=== PATIENT | female | born 1965 | race Caucasian/White ===

== ENCOUNTER 2017-01-06 15:41 | Emergency (ER) | payer BC, OTHER ==
--- NOTE | 2017-01-06 16:38 | EDM.PDOC ---
ED HPI GENERAL MEDICAL PROBLEM - General Chief Complaint: Flank Pain Stated Complaint: KIDNEY PAINS Time Seen by Provider: 01/06/17 16:36 Source of Information: Reports: Patient History Limitations: Reports: No Limitations - History of Present Illness INITIAL COMMENTS - FREE TEXT/NARRATIVE: HISTORY AND PHYSICAL: [] 51-year-old female presenting with bilateral flank pain similar to incident 10 years ago. At that time she was diagnosed with bilateral kidney stones and infection History of Present Illness: [Pain started today she has been voiding in very small amounts Patient does have history of a tubal ligation] Review of Systems: As per history of present illness and below otherwise all systems reviewed and negative. Past medical history: As per history of present illness and as reviewed below otherwise noncontributory. Surgical history: As per history of present illness and as reviewed below otherwise noncontributory. Social history: No reported history of drug or alcohol abuse. Family history: As per history of present illness and as reviewed below otherwise noncontributory. Physical exam: Alert and oriented female somewhat teary-eyed when speaking of her illness HEENT: Atraumatic, normocehpalic, pupils reactive, negative for conjunctival pallor or scleral icterus, mucous membranes moist, throat clear, neck supple, nontender, trachea midline. Lungs: Clear to auscultation, breath sounds equal bilaterally, chest non tender. Heart: S1S2, regular, negative for clicks, rubs, or JVD. Abdomen: Soft, nondistended, nontender. Negative for masses or hepatossplenmegaly. Positive for costovertebral tenderness. Pelvis: Stable nontender. Genitourinary: Deferred. Rectal: Deferred Extremities: Atraumatic, negative for cords or calf pain. Neurovascular unremarkable. Neuro: Awake, alert, oriented. Cranial nerves II through XII unremarkable. Cerebellum unremarkable. Motor and sensory unremarkable throughout. Exam nonfocal. Diagnostics: [Abdomen pelvis CT without] Therapeutics: [] Impression: [early pyleonephritis] Plan: [cipro 500 mg bid for 7 days Followup with primary care provider next week] Definitive disposition and diagnosis as appropriate pending reevaluation and review of above. Onset: Today, Sudden Duration: Hour(s):, Getting Worse Location: Reports: Other (flanks) Bilateral Flank Pain Score (Numeric/FACES): 9 - Related Data Allergies Allergy/AdvReac Type Severity Reaction Status Date / Time No Known Allergies Allergy Verified 09/19/14 14:33 Home Meds: Home Meds Ciprofloxacin HCl [Cipro] 500 mg PO BID #14 tablet 01/06/17 [Rx] Olmesartan [Benicar] 20 mg PO DAILY 01/06/17 [History] ED ROS GENERAL - Review of Systems Review Of Systems: ROS reveals no pertinent complaints other than HPI. ED EXAM, RENAL/ - Physical Exam Exam: See Below (see dictation) Course - Vital Signs Last Recorded V/S: Last Vital Signs Temp 36.6 C 01/06/17 16:30 Pulse 60 01/06/17 19:05 Resp 18 01/06/17 19:05 BP 177/98 H 01/06/17 19:05 Pulse Ox 98 01/06/17 19:05 - Orders/Labs/Meds Orders: Active Orders 24 hr Category Date Time Status Abdomen Pelvis wo Cont [CT] Stat Exams 01/06/17 17:46 Taken CBC WITH AUTO DIFF [HEME] Stat Lab 01/06/17 17:28 Ordered COMPREHENSIVE METABOLIC PN,CMP [CHEM] Stat Lab 01/06/17 17:28 Ordered CULTURE URINE [RM] Stat Lab 01/06/17 17:35 Received Sodium Chloride 0.9% [Saline Flush] Med 01/06/17 17:29 Active 10 ml FLUSH ASDIRECTED PRN Sodium Chloride 0.9% [Saline Flush] Med 01/06/17 17:29 Active 2.5 ml FLUSH ASDIRECTED PRN Saline Lock Insert [OM.PC] Stat Oth 01/06/17 17:28 Ordered Medication Orders Sodium Chloride (Saline Flush) 10 ml FLUSH ASDIRECTED PRN PRN Reason: Keep Vein Open Sodium Chloride (Saline Flush) 2.5 ml FLUSH ASDIRECTED PRN PRN Reason: Keep Vein Open Labs: Laboratory Tests 01/06/17 01/06/17 Range/Units 17:35 17:35 Urine Color YELLOW Urine Appearance CLEAR Urine pH 5.5 (5.0-8.0) Ur Specific [place] <= 1.005 (1.001-1.035) Urine Protein NEGATIVE (NEGATIVE) mg/dL Urine Glucose (UA) NEGATIVE (NEGATIVE) mg/dL Urine Ketones NEGATIVE (NEGATIVE) mg/dL Urine Occult Blood TRACE-INTACT (NEGATIVE) Urine Nitrite NEGATIVE (NEGATIVE) Urine Bilirubin NEGATIVE (NEGATIVE) Urine Urobilinogen 0.2 (<2.0) EU/dL Ur Leukocyte Esterase NEGATIVE (NEGATIVE) Urine RBC 0-1 (0-2/HPF) Urine WBC 0-1 (0-5/HPF) Ur Epithelial Cells RARE (NONE-FEW) Amorphous Sediment RARE (NEGATIVE) Urine Bacteria RARE (NEGATIVE) Urine HCG, Qual NEGATIVE (NEGATIVE) Meds: Medications Generic Name Dose Route Start Last Admin Trade Name Freq PRN Reason Stop Dose Admin Sodium Chloride 10 ml 01/06/17 17:29 Saline Flush FLUSH ASDIRECTED PRN Keep Vein Open Sodium Chloride 2.5 ml 01/06/17 17:29 Saline Flush FLUSH ASDIRECTED PRN Keep Vein Open Discontinued Medications Generic Name Dose Route Start Last Admin Trade Name Freq PRN Reason Stop Dose Admin Sodium Chloride 1,000 mls @ 999 mls/hr 01/06/17 17:29 01/06/17 18:08 Normal Saline IV 01/06/17 18:29 999 mls/hr STAT ONE Administration Morphine Sulfate 2 mg 01/06/17 17:29 01/06/17 18:09 Morphine IV 01/06/17 17:30 2 mg ONETIME ONE Administration Ondansetron HCl 4 mg 01/06/17 17:29 01/06/17 18:13 Zofran IVPUSH 01/06/17 17:30 4 mg ONETIME ONE Administration Departure - Departure Time of Disposition: 19:23 Disposition: Home, Self-Care 01 Condition: good Clinical Impression: Pyelonephritis - Discharge Information Prescriptions: Ciprofloxacin HCl [Cipro] 500 mg PO BID #14 tablet Instructions: Pyelonephritis, Adult, [id number] Forms: ED Department Discharge Additional Instructions: The following information is given to patients seen in the emergency department who are being discharged to home. This information is to outline your options for follow-up care. We provide all patients seen in our emergency department with a follow-up referral. The need for follow-up, as well as the timing and circumstances, are variable depending upon the specifics of your emergency department visit. If you don't have a primary care physician on staff, we will provide you with a referral. We always advise you to contact your personal physician following an emergency department visit to inform them of the circumstance of the visit and for follow-up with them and/or the need for any referrals to a consulting specialist. The emergency department will also refer you to a specialist when appropriate. This referral assures that you have the opportunity for followup care with a specialist. All of these measure are taken in an effort to provide you with optimal care, which includes your followup. Under all circumstances we always encourage you to contact your private physician who remains a resource for coordinating your care. When calling for followup care, please make the office aware that this follow-up is from your recent emergency room visit. If for any reason you are refused follow-up, please contact the [facility] emergency department at and asked to speak to the emergency department charge nurse. Description is been sent electronically to [facility] Ciprofloxacin 500 mg twice daily for 7 days Followup with your primary care provider next week Return to emergency room if symptoms worsen - My Orders Last 24 Hours: My Active Orders 01/06/17 17:28 CBC WITH AUTO DIFF [HEME] Stat COMPREHENSIVE METABOLIC PN,CMP [CHEM] Stat Saline Lock Insert [OM.PC] Stat 01/06/17 17:29 Sodium Chloride 0.9% [Saline Flush] 10 ml FLUSH ASDIRECTED PRN Sodium Chloride 0.9% [Saline Flush] 2.5 ml FLUSH ASDIRECTED PRN 01/06/17 17:35 CULTURE URINE [RM] Stat 01/06/17 17:46 Abdomen Pelvis wo Cont [CT] Stat - Assessment/Plan Last 24 Hours: My Active Orders 01/06/17 17:28 CBC WITH AUTO DIFF [HEME] Stat COMPREHENSIVE METABOLIC PN,CMP [CHEM] Stat Saline Lock Insert [OM.PC] Stat 01/06/17 17:29 Sodium Chloride 0.9% [Saline Flush] 10 ml FLUSH ASDIRECTED PRN Sodium Chloride 0.9% [Saline Flush] 2.5 ml FLUSH ASDIRECTED PRN 01/06/17 17:35 CULTURE URINE [RM] Stat 01/06/17 17:46 Abdomen Pelvis wo Cont [CT] Stat
[2017-01-06] MEDS ORDERED: Sodium Chloride 0.9% 2.5 ML Syringe FLUSH PRN (17:29)
[2017-01-06] MEDS ORDERED: Ondansetron 4 MG/2 ML SDV IVPUSH ONE (17:29)
[2017-01-06] MEDS ORDERED: Sodium Chloride 0.9% 1,000 ML IV ONE (17:29)
[2017-01-06] MEDS ORDERED: Morphine 10 MG/ML Syringe IV ONE (17:29)
[2017-01-06] MEDS ORDERED: Sodium Chloride 0.9% 10 ML Syringe FLUSH PRN (17:29)
--- NOTE | 2017-01-07 10:42 | CT ---
EXAM DATE: 01/06/17 PATIENT'S AGE: 51 Patient: DEMETRIA COX Facility: [place], [place] Site . Site : 1965 Study: CT Abdomen/Pelvis [id number]/6/2017 6:48:21 PM Ordering Physician: Doctor Mancuso Final Report: INDICATION: Bilateral abdominal pain TECHNIQUE: CT abdomen and pelvis without i.v. contrast. Coronal and sagittal reformats were obtained. COMPARISON: None FINDINGS: Lower chest: Unremarkable. Liver: Unremarkable. Spleen: Unremarkable. Pancreas: Unremarkable. Gallbladder and bile ducts: Unremarkable. Kidneys: Unremarkable. No kidney or ureteral stones and no hydronephrosis seen. Adrenal glands: Unremarkable. GI tract: Unremarkable. The appendix cannot be identified but there are no inflammatory changes noted in the right lower quadrant. Vascular: Unremarkable. Lymph nodes: Unremarkable. Miscellaneous: Unremarkable. No pneumoperitoneum is seen. No significant ascites is noted. Pelvic Organs: Unremarkable. Bones: Unremarkable for age. IMPRESSION: 1. Unremarkable CT appearance of the abdomen and pelvis. Dictated by Juni Simmons MD @ 01/06/2017 7:05:05 PM Dictated by: Juni Simmons MD @ 01/06/2017 19:05:11 (Electronic Signature) Report Signed by Proxy. BUNNY
== END 2017-01-06 19:41 | disposition home or self-care (01) ==
LOC: MW.ED 15:41
DX: N12 Tubulo-interstitial nephritis, not specified as acute or chronic (principal); Z79.899 Other long term (current) drug therapy
CPT/HCPCS: 74176; 81001; 81025; 87086; 96361; 96374; 96375; 99284; J2270; J2405; J7040

== ENCOUNTER 2017-10-01 08:41 | Day surgery (SDC) | payer BC ==
[~2017-10-01 08:41] MED LIST: Lactated Ringers 1,000 ML IV SCH; Sodium Chloride 0.9% 10 ML Syringe FLUSH PRN; Sodium Chloride 0.9% 2.5 ML Syringe FLUSH PRN
--- NOTE | 2017-10-01 09:27 | PCM.PREANE ---
Preanesthetic Assessment - Anesthesia/Transfusion/Family Hx Anesthesia History: Prior Anesthesia Without Reaction Family History of Anesthesia Reaction: No Transfusion History: No Prior Transfusion(s) - Review of Systems General: No Symptoms Pulmonary: No Symptoms Cardiovascular: No Symptoms Gastrointestinal: No Symptoms Neurological: No Symptoms Other: Reports: None - Physical Assessment NPO Status Date: 09/30/17 O2 Sat by Pulse Oximetry: 99 Respiratory Rate: 16 Vital Signs: Last Vital Signs Temp 36.2 C 10/01/17 08:49 Pulse 64 10/01/17 08:49 Resp 16 10/01/17 08:49 BP 162/82 H 10/01/17 08:49 Pulse Ox 99 10/01/17 08:49 Height: 1.55 m Weight: 63.957 kg ASA Class: 2 Mental Status: Alert & Oriented x3 Airway Class: Mallampati = 2 Dentition: Reports: Normal Dentition ROM/Head Extension: Full Lungs: Clear to Auscultation, Normal Respiratory Effort Cardiovascular: Regular Rate, Regular Rhythm - Allergies Allergies/Adverse Reactions: Allergies Allergy/AdvReac Type Severity Reaction Status Date / Time Penicillins Allergy Fever Verified 09/29/17 10:45 oranges Allergy Pain Uncoded 09/29/17 10:45 - Anesthesia Plan Pre-Op Medication Ordered: None - Acknowledgements Anesthesia Type Planned: MAC Pt an Appropriate Candidate for the Planned Anesthesia: Yes Alternatives and Risks of Anesthesia Discussed w Pt/Guardian: Yes Pt/Guardian Understands and Agrees with Anesthesia Plan: Yes Additional Comments: PMH: gerd, hx of esoph stricture, htn, renal stones, migraine, RA PreAnesthesia Questionnaire HEENT History: Reports: None Cardiovascular History: Reports: None Other Cardiovascular History: not currently taking any medication for BP, was told she had a heart murmur when she had a BTL Respiratory History: Reports: None Gastrointestinal History: Reports: GERD, Hepatitis Other Gastrointestinal History: hx of hepatitis C Genitourinary History: Reports: Renal Calculus Musculoskeletal History: Reports: None Other Musculoskeletal History: Juvenile RA, 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 Neurological History: Reports: None Psychiatric History: Reports: None Endocrine/Metabolic History: Reports: None Hematologic History: Reports: None Immunologic History: Reports: None Oncologic (Cancer) History: Reports: None Dermatologic History: Reports: None - Past Surgical History Head Surgeries/Procedures: Reports: None GI Surgical History: Reports: Appendectomy Female Surgical History: Reports: Tubal Ligation - SUBSTANCE USE Smoking Status *Q: Never Smoker Second Hand Smoke Exposure: No Number of Drinks Per Day: 3 Recreational Drug Use History: No - HOME MEDS Home Medications: Home Meds . [No Known Home Meds] 09/29/17 [History] - CURRENT (IN HOUSE) MEDS Current Meds: Current Medications Lactated Ringer's (Ringers, Lactated) 1,000 mls @ 125 mls/hr IV ASDIRECTED MARII Last Admin: 10/01/17 08:55 Dose: 125 mls/hr Sodium Chloride (Saline Flush) 10 ml FLUSH ASDIRECTED PRN PRN Reason: Keep Vein Open Sodium Chloride (Saline Flush) 2.5 ml FLUSH ASDIRECTED PRN PRN Reason: Keep Vein Open Sodium Chloride (Saline Flush) 10 ml FLUSH ASDIRECTED PRN PRN Reason: Keep Vein Open Sodium Chloride (Saline Flush) 2.5 ml FLUSH ASDIRECTED PRN PRN Reason: Keep Vein Open
[2017-10-01] MEDS ORDERED: Lidocaine 2% 5 ML SDV ONE (10:43)
[2017-10-01] MEDS ORDERED: Propofol 200 MG/20 ML SDV ONE (10:43)
[2017-10-01] MEDS ORDERED: Midazolam 1 MG/ML 2 ML SDV ONE (10:44)
[2017-10-01] MEDS ORDERED: fentaNYL 100 MCG/2 ML SDV ONE (10:44)
--- NOTE | 2017-10-01 11:20 | PCM.OPNOTE ---
- General Post-Op/Procedure Note Date of Surgery/Procedure: 10/01/17 Operative Procedure(s): colonoscopy with biopsy of 5 sigmoid polyps Findings: 5 sigmoid colon polyps, appear to be hyperplastic polyps Pre Op Diagnosis: Screening Post-Op Diagnosis: 5x sigmoid colon polyps Anesthesia Technique: LARON Primary Surgeon: Radha Tom Secondary Surgeon: Hi Karimi Pathology: 5 sigmoid colon polyps EBL in mLs: 1 Complications: None
[2017-10-01 11:48] VITALS: BP 116/73
--- NOTE | 2017-10-01 12:14 | OR ---
SURGEON: REBEKAH RALPH MD DATE OF PROCEDURE: 10/01/2017 PREOPERATIVE DIAGNOSIS: Screening colonoscopy. POSTOPERATIVE DIAGNOSIS: Sigmoid colon polyps. PROCEDURE PERFORMED: Colonoscopy. ARTISTS' MODEL: Dr. Hi Karimi. ANESTHESIA: MAC. INSTRUMENT USED: Olympus colonoscope. EXTENT OF THE EXAMINATION: To the cecum. PREPARATION: Good. LIMITATIONS: None. INDICATIONS FOR EXAMINATION: The patient is a 52-year-old female who is here for screening colonoscopy. We discussed the procedure, expected perioperative course, and risks including bleeding, infection, or damage to surrounding structures including perforation. The patient verbalized understanding and wishes to proceed. PROCEDURE IN DETAIL: The patient was brought into the endoscopy suite and placed in the left lateral decubitus position. A time-out was completed verifying the patient's name, age, date of , allergies, and procedure to be performed. The monitored anesthesia care was induced, and continuous oxygen was provided via face mask throughout the procedure. After adequate sedation was achieved, a digital rectal exam was performed. This exam was within normal limits. A well- lubricated colonoscope was inserted into the rectum and advanced under direct visualization to the level of cecum. The cecum was identified by both visual and anatomic landmarks. A photograph was taken of the cecal cap. I attempted to retroflex the scope within the cecum, but was unable to do so due to looping of the scope more proximally. The scope was then fully withdrawn while examining the color, texture, anatomy, and integrity of the mucosa from the cecum to the anal canal. The patient was found to have 1 to 2 mm sessile polyps within the distal sigmoid colon. These were removed using a cold biopsy forceps. They were labeled and sent to pathology. The colon appeared normal. The scope was brought into the rectum and retroflexed to allow visualization of the anal canal opening. The patient had some mild hemorrhoidal enlargement, but this otherwise, appeared normal. The scope was then fully withdrawn and removed from the patient. The [id number] time was 9 minutes. The patient tolerated the procedure well and was taken to PACU in stable condition. ENDOSCOPIC DIAGNOSIS: Sigmoid colon polyps. RECOMMENDATIONS: Follow up in clinic in two weeks. GRAEME ALANIS /[id number]
== END 2017-10-01 11:56 | disposition home or self-care (01) ==
LOC: MW.SDS 08:41
PROVIDERS: ATTEND Surgery
DX: Z12.11 Encounter for screening for malignant neoplasm of colon (principal); K63.5 Polyp of colon; K64.9 Unspecified hemorrhoids; K21.9 Gastro-esophageal reflux disease without esophagitis; Z80.0 Family history of malignant neoplasm of digestive organs; Z88.0 Allergy status to penicillin; Z91.018 Allergy to other foods; Z90.49 Acquired absence of other specified parts of digestive tract; Z98.51 Tubal ligation status; Z86.19 Personal history of other infectious and parasitic diseases
CPT/HCPCS: 45380; J2250; J3010; J7120; 88305; J2704

== ENCOUNTER 2022-11-20 08:09 | Day surgery (SDC) | payer BC ==
[~2022-11-20 08:09] MED LIST changes: +Propofol 200 MG/20 ML SDV ONE; +Sodium Chloride 0.9% 20 ML SDV IV PRN; +fentaNYL 100 MCG/2 ML SDV ONE
[2022-11-20 10:24] VITALS: BP 136/76; PULSE 56
== END 2022-11-20 10:45 | disposition home or self-care (01) ==
LOC: MW.SDS 08:09
PROVIDERS: ATTEND Surgery
DX: Z12.11 Encounter for screening for malignant neoplasm of colon (principal); K63.5 Polyp of colon; I10 Essential (primary) hypertension; K21.9 Gastro-esophageal reflux disease without esophagitis; Z88.0 Allergy status to penicillin; Z80.0 Family history of malignant neoplasm of digestive organs; Z79.899 Other long term (current) drug therapy; Z91.018 Allergy to other foods
CPT/HCPCS: 45380; J2704; J3010; J7120; 00811

== ENCOUNTER 2023-05-18 05:26 | Observation (INO) | payer BC ==
[2023-05-18] MEDS ORDERED: LORazepam 2 MG/ML SDV ONE ×2 (05:35→05:52)
[2023-05-18] MEDS ORDERED: Sodium Chloride 0.9% 2.5 ML Syringe FLUSH PRN (05:35)
[2023-05-18] MEDS ORDERED: Sodium Chloride 0.9% 10 ML Syringe FLUSH PRN (05:35)
[2023-05-18 05:54] LABS: BASOPHILS ABSOLUTE AUTO 0.08 K/uL (0.00-0.20); BASOPHILS PERCENT AUTO 0.5 % (0.0-1.0); EOSINOPHILS ABSOLUTE AUTO 0.01 K/uL (0.00-0.45); EOSINOPHILS PERCENT AUTO 0.1 % (0.0-6.0); HEMOGLOBIN 14.5 g/dL (12.0-16.0); IMMATURE GRAN ABSOLUTE AUTO 0.12 K/uL (0.00-0.05); IMMATURE GRAN PERCENT AUTO 0.8 % (0.0-0.4); LYMPHOCYTES ABSOLUTE AUTO 3.07 K/uL (1.00-4.80); LYMPHOCYTES PERCENT AUTO 20.2 % (24.0-44.0); MEAN CORPUSCULAR HEMOGLOBIN 33.6 pg (28.0-32.0); MEAN CORPUSCULAR HGB CONC 34.5 g/dL (32.0-36.0); MEAN CORPUSCULAR VOLUME 97.2 fL (83.0-99.0); MEAN PLATELET VOLUME 9.7 fL (9.4-12.3); MONOCYTES ABSOLUTE AUTO 1.32 K/uL (0.00-0.80); MONOCYTES PERCENT AUTO 8.7 % (0.0-8.0); NEUTROPHILS ABSOLUTE AUTO 10.57 K/uL (1.80-7.70); NEUTROPHILS PERCENT AUTO 69.7 % (41.0-71.0); PLATELET COUNT,PLT 265 K/uL (150-400); RED BLOOD CELL COUNT 4.32 M/uL (4.10-5.30); WHITE BLOOD CELL COUNT,WBC 15.17 K/uL (3.9-11.3)
[2023-05-18 06:05] LABS: INR 1.04 (0.86-1.11)
[2023-05-18] MEDS ORDERED: VANCOmycin 1.5 GM/300 ML 1.5 GM in Premix Bag 1 BAG IV ONE (06:15)
[2023-05-18 06:29] LABS: ALANINE AMINOTRANSFERASE,ALT 105 IU/L (14-63); ALBUMIN 4.1 g/dL (3.4-5.0); ALKALINE PHOSPHATASE 93 U/L (46-116); BILIRUBIN TOTAL 0.6 mg/dL (0.2-1.0); BLOOD UREA NITROGEN,BUN 12 mg/dL (7.0-18.0); CALCIUM 8.5 mg/dL (8.5-10.1); CARBON DIOXIDE,CO2 19.8 mmol/L (21.0-32.0); CHLORIDE,CL 99 mmol/L (98-107); CREATININE 1.3 mg/dL (0.6-1.0); EST CRCL DRUG DOSING (CG) 41.73 mL/min; GLUCOSE RANDOM 209 mg/dL (74-106); LIPASE 22 U/L (16-77); MAGNESIUM 1.8 mg/dL (1.8-2.4); POTASSIUM,K 2.9 mmol/L (3.5-5.1); PROTEIN TOTAL,TP 8.1 g/dL (6.4-8.2); SODIUM,NA 141 mmol/L (136-145); TSH ULTRASENSITIVE 2.86 uIU/mL (0.36-3.74)
[2023-05-18] MEDS ORDERED: LORazepam 2 MG/ML SDV IVPUSH ONE (06:29)
[2023-05-18 06:31] LABS: CORONAVIRUS COVID-19 NAA NEGATIVE (NEGATIVE); INFLUENZA A NAA NEGATIVE (NEGATIVE); INFLUENZA B NAA NEGATIVE (NEGATIVE); RESPIRATORY SYNCYTIAL VIR NAA NEGATIVE (NEGATIVE)
[2023-05-18 06:38] LABS: ESTIMATED GFR 48 mL/min (>60); ETHANOL BLOOD MEDICAL < 3.0 mg/dL
[2023-05-18 06:40] LABS: LACTIC ACID 14.2 mmol/L (0.4-2.0)
[2023-05-18] MEDS ORDERED: Sodium Chloride 0.9% 1,000 ML IV ONE ×2 (06:41)
[2023-05-18 06:47] LABS: ASPARTATE AMNIOTRANSFERASE,AST 134 IU/L (15-37)
[2023-05-18] MEDS ORDERED: Ondansetron 4 MG/2 ML SDV IVPUSH ONE (06:47)
[2023-05-18 06:58] LABS: ACETAMINOPHEN <2.0 ug/mL; SALICYLATE 3.5 mg/dL (0.0-20.0)
[2023-05-18] MEDS ORDERED: Sodium Chloride 0.9% 250 ML IV SCH (07:00)
[2023-05-18] MEDS ORDERED: Iopamidol 755 MG/ML 500 ML Multipack Bottle IVPUSH ONE (07:23)
[2023-05-18] MEDS: Potassium Chloride 100 ML IV SCH ×2 (08:06→10:03)
[2023-05-18 08:34] LABS: AMPHETAMINES SCREEN, URINE NEGATIVE (CUTOFF=500); BARBITURATE SCREEN,URINE NEGATIVE (CUTOFF=200); BENZODIAZEPINES SCREEN,URINE PRESUMPTIVE POSITIVE (CUTOFF=150); BUPRENORPHINE SCREEN,URINE NEGATIVE (CUTOFF=10); METHADONE SCREEN, URINE NEGATIVE (CUTOFF=200); METHAMPHETAMINES SCREEN, URINE NEGATIVE (CUTOFF=500); OXYCODONE SCREEN,URINE NEGATIVE (CUT0FF=100); PCP SCREEN,URINE NEGATIVE (CUTOFF=25); PROPOXYPHENE SCREEN,URINE NEGATIVE (CUTOFF=300); THC SCREEN,URINE 20 NG/ML PRESUMPTIVE POSITIVE (CUTOFF=50)
[2023-05-18] MEDS ORDERED: Ketorolac 30 MG/ML SDV IVPUSH ONE (08:44)
[2023-05-18 08:48] LABS: APPEARANCE,URINE CLEAR; BILIRUBIN,URINE NEGATIVE (NEGATIVE); COLOR,URINE YELLOW; GLUCOSE,URINE 100 mg/dL (NEGATIVE); KETONES,URINE NEGATIVE (NEGATIVE); LEUKOCYTE ESTERASE,URINE NEGATIVE (NEGATIVE); NITRITE,URINE NEGATIVE (NEGATIVE); OCCULT BLOOD,URINE TRACE-INTACT (NEGATIVE); PH,URINE 5.5 (5.0-8.0); PROTEIN,URINE TRACE mg/dL (NEGATIVE); UROBILINOGEN,URINE 0.2 EU/dL (<2.0)
[2023-05-18] MEDS: Acetaminophen 500 MG Tab PO ONE ×2 (08:50→09:09)
[2023-05-18] MEDS ORDERED: cefTRIAXone 2 GM in Sodium Chloride 0.9% 50 ML IV ONE (09:04)
[2023-05-18] MEDS ORDERED: Ampicillin 2 GM in Sodium Chloride 0.9% 100 ML IV ONE (09:04)
[2023-05-18 09:13] LABS: EPITHELIAL CELLS,URINE RARE (NONE-FEW); RBC,URINE 0-2 (0-2/HPF); WBC,URINE 0-3 (0-5/HPF)
[2023-05-18] MEDS ORDERED: Sodium Chloride 0.9% 1,000 ML IV STA (09:36)
[2023-05-18 10:51] LABS: COLOR,CSF COLORLESS
[2023-05-18 10:52] LABS: APPEARANCE CSF CLEAR; RBC,CSF 4 /uL (0-0); WBC,CSF < 3 /uL (0-5)
[2023-05-18] MEDS ORDERED: LORazepam 2 MG/ML SDV IVPUSH PRN (12:11)
[2023-05-18] MEDS ORDERED: Ondansetron 4 MG/2 ML SDV IVPUSH PRN (12:13)
[2023-05-18] MEDS ORDERED: Acetaminophen 325 MG Tab PO PRN (12:13)
[2023-05-18] MEDS ORDERED: Thiamine 100 MG in Sodium Chloride 0.9% 100 ML IV SCH (12:15)
[2023-05-18] MEDS ORDERED: Thiamine 200 MG/2 ML MDV IV ONE (12:45)
[2023-05-18] MEDS: Enoxaparin 40 MG/0.4 ML Syringe SUBCUT SCH (14:10)
[2023-05-18] MEDS: Folic Acid 1 MG/0.2 ML UD Syringe IV SCH (14:11)
[2023-05-18] MEDS: Pantoprazole 40 MG in Sodium Chloride 0.9% 10 ML IVPUSH SCH (14:15)
[2023-05-18] MEDS: Lactated Ringers 1,000 ML IV SCH ×2 (14:25→22:14)
[2023-05-18] MEDS ORDERED: Acetaminophen 650 MG in Premix Bag 1 BAG IV PRN (15:27)
[2023-05-18] MEDS ORDERED: Phosphorus #1 250 MG Tab PO ONE (15:27)
[2023-05-18] MEDS: Lidocaine 2% Viscous Solution 15 ML UD PO PRN ×2 (17:32→23:37)
[2023-05-18] MEDS: Acetaminophen 325 MG/10.15 ML ML PO PRN (20:42)
[2023-05-19] MEDS: Acetaminophen 325 MG/10.15 ML ML PO PRN ×4 (03:25→19:45)
[2023-05-19] MEDS: Lidocaine 2% Viscous Solution 15 ML UD PO PRN ×3 (03:48→19:46)
[2023-05-19 05:37] LABS: BASOPHILS ABSOLUTE AUTO 0.03 K/uL (0.00-0.20); BASOPHILS PERCENT AUTO 0.3 % (0.0-1.0); EOSINOPHILS ABSOLUTE AUTO 0.09 K/uL (0.00-0.45); EOSINOPHILS PERCENT AUTO 0.9 % (0.0-6.0); HEMATOCRIT 32.9 % (37.0-47.0); HEMOGLOBIN 11.3 g/dL (12.0-16.0); IMMATURE GRAN ABSOLUTE AUTO 0.03 K/uL (0.00-0.05); IMMATURE GRAN PERCENT AUTO 0.3 % (0.0-0.4); LYMPHOCYTES ABSOLUTE AUTO 1.35 K/uL (1.00-4.80); LYMPHOCYTES PERCENT AUTO 14.2 % (24.0-44.0); MEAN CORPUSCULAR HEMOGLOBIN 33.1 pg (28.0-32.0); MEAN CORPUSCULAR HGB CONC 34.3 g/dL (32.0-36.0); MEAN CORPUSCULAR VOLUME 96.5 fL (83.0-99.0); MEAN PLATELET VOLUME 9.5 fL (9.4-12.3); MONOCYTES ABSOLUTE AUTO 0.79 K/uL (0.00-0.80); MONOCYTES PERCENT AUTO 8.3 % (0.0-8.0); NEUTROPHILS ABSOLUTE AUTO 7.22 K/uL (1.80-7.70); PLATELET COUNT,PLT 160 K/uL (150-400); RED BLOOD CELL COUNT 3.41 M/uL (4.10-5.30); WHITE BLOOD CELL COUNT,WBC 9.51 K/uL (3.9-11.3)
[2023-05-19 06:11] LABS: A/G RATIO 0.9 (0.9-1.6); BILIRUBIN TOTAL 0.7 mg/dL (0.2-1.0); CALCIUM 7.6 mg/dL (8.5-10.1); CARBON DIOXIDE,CO2 24.7 mmol/L (21.0-32.0); CREATININE 0.7 mg/dL (0.6-1.0); EST CRCL DRUG DOSING (CG) 64.46 mL/min; PROTEIN TOTAL,TP 6.3 g/dL (6.4-8.2)
[2023-05-19 06:13] LABS: POTASSIUM,K 2.4 mmol/L (3.5-5.1)
[2023-05-19] MEDS ORDERED: Potassium Chloride 20 MEQ Tab.ER PO ONE (06:16)
[2023-05-19] MEDS ORDERED: Potassium Chloride 20 MEQ Tab.ER ONE (06:24)
[2023-05-19] MEDS ORDERED: NS with KCl 40mEq 1,000 ML IV SCH (06:30)
[2023-05-19] MEDS ORDERED: Magnesium Sulfate/Water 2 GM in Premix Bag 1 BAG IV ONE (07:14)
[2023-05-19] MEDS ORDERED: Non-Formulary Medication 1 Each (Amlodipine Besylate [Amlodipine Besylate] 5 MG Tablet) PO SCH (09:00)
[2023-05-19] MEDS: Losartan 50 MG Tab PO SCH (09:36)
[2023-05-19] MEDS: Folic Acid 1 MG/0.2 ML UD Syringe IV SCH (09:38)
[2023-05-19] MEDS: Thiamine 200 MG/2 ML MDV IVPUSH SCH (09:39)
[2023-05-19] MEDS: Enoxaparin 40 MG/0.4 ML Syringe SUBCUT SCH (11:53)
[2023-05-19] MEDS ORDERED: cefTRIAXone 1 GM in Sodium Chloride 0.9% 50 ML IV SCH (13:00)
[2023-05-19] MEDS: Lactated Ringers 1,000 ML IV SCH (13:22)
[2023-05-19] MEDS: Pantoprazole 40 MG in Sodium Chloride 0.9% 10 ML IVPUSH SCH (13:25)
[2023-05-19 14:00] LABS: CALCIUM 7.8 mg/dL (8.5-10.1); CREATININE 0.5 mg/dL (0.6-1.0); EST CRCL DRUG DOSING (CG) 90.24 mL/min; POTASSIUM,K 3.7 mmol/L (3.5-5.1)
[2023-05-19] MEDS: Sodium Chloride 0.9% 1,000 ML IV SCH ×2 (15:59→23:16)
[2023-05-20] MEDS ORDERED: Metoprolol Tartrate 25 MG Tab PO ONE (00:48)
[2023-05-20 06:03] LABS: HEMATOCRIT 34.2 % (37.0-47.0); HEMOGLOBIN 12.1 g/dL (12.0-16.0); RED BLOOD CELL COUNT 3.59 M/uL (4.10-5.30); WHITE BLOOD CELL COUNT,WBC 8.89 K/uL (3.9-11.3)
[2023-05-20 06:04] LABS: MEAN CORPUSCULAR HEMOGLOBIN 33.7 pg (28.0-32.0); MEAN CORPUSCULAR VOLUME 95.3 fL (83.0-99.0)
[2023-05-20 06:05] LABS: BASOPHILS ABSOLUTE AUTO 0.03 K/uL (0.00-0.20); BASOPHILS PERCENT AUTO 0.3 % (0.0-1.0); EOSINOPHILS PERCENT AUTO 1.1 % (0.0-6.0); IMMATURE GRAN ABSOLUTE AUTO 0.04 K/uL (0.00-0.05); IMMATURE GRAN PERCENT AUTO 0.4 % (0.0-0.4); LYMPHOCYTES ABSOLUTE AUTO 1.24 K/uL (1.00-4.80); LYMPHOCYTES PERCENT AUTO 13.9 % (24.0-44.0); MEAN CORPUSCULAR HGB CONC 35.4 g/dL (32.0-36.0); MEAN PLATELET VOLUME 9.6 fL (9.4-12.3); MONOCYTES ABSOLUTE AUTO 0.73 K/uL (0.00-0.80); MONOCYTES PERCENT AUTO 8.2 % (0.0-8.0); NEUTROPHILS ABSOLUTE AUTO 6.75 K/uL (1.80-7.70); NEUTROPHILS PERCENT AUTO 76.1 % (41.0-71.0); PLATELET COUNT,PLT 168 K/uL (150-400)
[2023-05-20 06:39] LABS: ALBUMIN 3.4 g/dL (3.4-5.0); BILIRUBIN TOTAL 0.6 mg/dL (0.2-1.0); CALCIUM 8.1 mg/dL (8.5-10.1); CARBON DIOXIDE,CO2 25.9 mmol/L (21.0-32.0); CREATININE 0.6 mg/dL (0.6-1.0); EST CRCL DRUG DOSING (CG) 75.2 mL/min; MAGNESIUM 1.5 mg/dL (1.8-2.4); PHOSPHORUS 2.7 mg/dL (2.6-4.7); POTASSIUM,K 3.3 mmol/L (3.5-5.1); PROTEIN TOTAL,TP 6.9 g/dL (6.4-8.2)
[2023-05-20] MEDS ORDERED: Potassium Chloride 20 MEQ Tab.ER PO ONE (06:57)
[2023-05-20] MEDS: Sodium Chloride 0.9% 1,000 ML IV SCH (07:34)
[2023-05-20] MEDS: Acetaminophen 325 MG/10.15 ML ML PO PRN (08:08)
[2023-05-20] MEDS: Losartan 50 MG Tab PO SCH (08:10)
[2023-05-20] MEDS: Thiamine 200 MG/2 ML MDV IVPUSH SCH (08:13)
[2023-05-20] MEDS: Folic Acid 1 MG/0.2 ML UD Syringe IV SCH (08:18)
[2023-05-20 11:49] VITALS: BP 187/103; PULSE 85
== END 2023-05-20 11:50 | disposition home or self-care (01) ==
LOC: MW.ED 05:26 → UNDOADMOB 11:26 → MW.MS 11:26
PROVIDERS: ADMIT Family Medicine; ATTEND Family Medicine
DX: R56.9 Unspecified convulsions (principal); R50.9 Fever, unspecified; F10.10 Alcohol abuse, uncomplicated; R41.82 Altered mental status, unspecified; R11.2 Nausea with vomiting, unspecified; N12 Tubulo-interstitial nephritis, not specified as acute or chronic; I10 Essential (primary) hypertension; J18.9 Pneumonia, unspecified organism; K21.9 Gastro-esophageal reflux disease without esophagitis; E87.8 Other disorders of electrolyte and fluid balance, not elsewhere classified; G43.909 Migraine, unspecified, not intractable, without status migrainosus; G89.29 Other chronic pain; M54.2 Cervicalgia; M54.9 Dorsalgia, unspecified; Z20.822 Contact with and (suspected) exposure to COVID-19; Z88.0 Allergy status to penicillin; Z91.018 Allergy to other foods; Z79.899 Other long term (current) drug therapy; F10.139 Alcohol abuse with withdrawal, unspecified; Y90.0 Blood alcohol level of less than 20 mg/100 ml
CPT/HCPCS: 0241U; 36415; 70450; 71045; 72125; 74177; 80048; 80053; 80143; 80179; 80305; 80307; 81001; 82140; 82945; 83605; 83690; 83735; 84100; 84157; 84439; 84443; 84484; 85025; 85610; 86788; 86789; 87040; 87070; 87205; 87252; 87483; 89050; 93005; 96361; 96365; 96366; 96367; 96368; 96372; 96375; 96376; 99285; A9270; C9113; G0378; J0290; J0696; J1650; J1885; J1953; J2060; J2405; J3370; J3411; J3475; J3480; J3490; J7030; J7050; J7060; J7120; Q9967; 62270; 93010; 99291

== ENCOUNTER 2023-05-28 13:20 | Emergency (ER) | payer BC ==
[2023-05-28] MEDS ORDERED: Sodium Chloride 0.9% 10 ML Syringe FLUSH PRN (13:29)
[2023-05-28] MEDS ORDERED: Albuterol/Ipratropium 3.0-0.5 MG/3 ML Neb Soln NEB ONE (13:29)
[2023-05-28] MEDS ORDERED: Nitroglycerin 0.4 MG Tab.SL SL PRN (13:29)
[2023-05-28] MEDS ORDERED: Ondansetron 4 MG/2 ML SDV IVPUSH ONE (13:29)
[2023-05-28] MEDS ORDERED: Sodium Chloride 0.9% 2.5 ML Syringe FLUSH PRN (13:29)
[2023-05-28] MEDS: Aspirin 81 MG Tab.Chew PO ONE ×2 (13:35→13:39)
[2023-05-28] MEDS ORDERED: Aspirin 325 MG Tab PO ONE (13:38)
[2023-05-28 13:59] LABS: BASOPHILS ABSOLUTE AUTO 0.02 K/uL (0.00-0.20); BASOPHILS PERCENT AUTO 0.4 % (0.0-1.0); EOSINOPHILS ABSOLUTE AUTO 0.22 K/uL (0.00-0.45); EOSINOPHILS PERCENT AUTO 4.1 % (0.0-6.0); HEMATOCRIT 37.3 % (37.0-47.0); HEMOGLOBIN 12.8 g/dL (12.0-16.0); IMMATURE GRAN ABSOLUTE AUTO 0.01 K/uL (0.00-0.05); IMMATURE GRAN PERCENT AUTO 0.2 % (0.0-0.4); LYMPHOCYTES ABSOLUTE AUTO 1.84 K/uL (1.00-4.80); LYMPHOCYTES PERCENT AUTO 34.6 % (24.0-44.0); MEAN CORPUSCULAR HEMOGLOBIN 33.7 pg (28.0-32.0); MEAN CORPUSCULAR HGB CONC 34.3 g/dL (32.0-36.0); MEAN CORPUSCULAR VOLUME 98.2 fL (83.0-99.0); MEAN PLATELET VOLUME 9.6 fL (9.4-12.3); MONOCYTES PERCENT AUTO 13.2 % (0.0-8.0); NEUTROPHILS ABSOLUTE AUTO 2.53 K/uL (1.80-7.70); NEUTROPHILS PERCENT AUTO 47.5 % (41.0-71.0); PLATELET COUNT,PLT 361 K/uL (150-400); WHITE BLOOD CELL COUNT,WBC 5.32 K/uL (3.9-11.3)
[2023-05-28 14:20] LABS: ALANINE AMINOTRANSFERASE,ALT 50 IU/L (14-63); ALBUMIN 3.9 g/dL (3.4-5.0); ALKALINE PHOSPHATASE 83 U/L (46-116); ASPARTATE AMNIOTRANSFERASE,AST 45 IU/L (15-37); BILIRUBIN TOTAL 0.4 mg/dL (0.2-1.0); BLOOD UREA NITROGEN,BUN 10 mg/dL (7.0-18.0); CALCIUM 9.3 mg/dL (8.5-10.1); CARBON DIOXIDE,CO2 31.3 mmol/L (21.0-32.0); CHLORIDE,CL 103 mmol/L (98-107); CREATININE 0.6 mg/dL (0.6-1.0); GLUCOSE RANDOM 112 mg/dL (74-106); LIPASE 43 U/L (16-77); POTASSIUM,K 4.9 mmol/L (3.5-5.1); PROTEIN TOTAL,TP 7.9 g/dL (6.4-8.2); SODIUM,NA 142 mmol/L (136-145)
[2023-05-28 14:22] LABS: ESTIMATED GFR 105 mL/min (>60)
[2023-05-28] MEDS ORDERED: Sucralfate Suspension 1 GM/10 ML Cup PO ONE (16:07)
[2023-05-28] MEDS ORDERED: Famotidine 20 MG/2 ML SDV IVPUSH ONE (16:07)
[2023-05-28] MEDS ORDERED: Iopamidol 755 MG/ML 500 ML Multipack Bottle IVPUSH ONE (16:09)
[2023-05-28 22:10] VITALS: BP 142/65; PULSE 66
== END 2023-05-28 18:22 | disposition home or self-care (01) ==
LOC: MW.ED 13:20
DX: R07.89 Other chest pain (principal); I10 Essential (primary) hypertension; K21.9 Gastro-esophageal reflux disease without esophagitis; Z91.018 Allergy to other foods; Z88.0 Allergy status to penicillin; Z79.899 Other long term (current) drug therapy
CPT/HCPCS: 36415; 71275; 80053; 83690; 84484; 85025; 85379; 93005; 96374; 96375; 99285; A9270; J2405; J3490; Q9967; 93010; 99284; J7620-GY

== ENCOUNTER 2025-06-12 20:55 | Emergency (ER) | payer BC ==
[2025-06-12] MEDS: Ondansetron 4 MG/2 ML SDV IVPUSH ONE (21:03)
[2025-06-12 21:27] LABS: BASOPHILS ABSOLUTE AUTO 0.06 K/uL (0.00-0.20); BASOPHILS PERCENT AUTO 0.4 % (0.0-1.0); EOSINOPHILS ABSOLUTE AUTO 0.00 K/uL (0.00-0.45); EOSINOPHILS PERCENT AUTO 0.0 % (0.0-6.0); IMMATURE GRAN ABSOLUTE AUTO 0.08 K/uL (0.00-0.05); IMMATURE GRAN PERCENT AUTO 0.6 % (0.0-0.4); LYMPHOCYTES ABSOLUTE AUTO 0.71 K/uL (1.00-4.80); LYMPHOCYTES PERCENT AUTO 5.1 % (24.0-44.0); MEAN PLATELET VOLUME 9.5 fL (9.4-12.3); MONOCYTES ABSOLUTE AUTO 1.16 K/uL (0.00-0.80); MONOCYTES PERCENT AUTO 8.3 % (0.0-8.0); NEUTROPHILS ABSOLUTE AUTO 11.96 K/uL (1.80-7.70); NEUTROPHILS PERCENT AUTO 85.6 % (41.0-71.0); NRBC ABSOLUTE 0.00 K/uL (0.00-0.02); NRBC PERCENT 0.0 /100WBC (0.0-0.2); PLATELET COUNT,PLT 246 K/uL (150-400); RED BLOOD CELL COUNT 4.42 M/uL (4.10-5.30); WHITE BLOOD CELL COUNT,WBC 13.97 K/uL (3.9-11.3)
[2025-06-12] MEDS: Thiamine 200 MG/2 ML MDV IVPUSH ONE (21:47)
[2025-06-12 21:59] LABS: A/G RATIO 1.0 (0.9-1.6); ALANINE AMINOTRANSFERASE,ALT 133 IU/L (14-63); ASPARTATE AMNIOTRANSFERASE,AST 104 IU/L (15-37); BILIRUBIN TOTAL 1.1 mg/dL (0.2-1.0); BLOOD UREA NITROGEN,BUN 13 mg/dL (7.0-18.0); CARBON DIOXIDE,CO2 29.6 mmol/L (21.0-32.0); CHLORIDE,CL 94 mmol/L (98-107); CREATININE 0.8 mg/dL (0.6-1.0); EST CRCL DRUG DOSING (CG) 66.19 mL/min; ESTIMATED GFR 85 mL/min (>60); ETHANOL BLOOD MEDICAL <3 mg/dL; GLUCOSE RANDOM 196 mg/dL (74-106); POTASSIUM,K 3.1 mmol/L (3.5-5.1); PRO B-TYPE NATRIUR PEPT,BNPPRO 749 pg/mL (0-125); PROTEIN TOTAL,TP 8.8 g/dL (6.4-8.2); SODIUM,NA 139 mmol/L (136-145)
[2025-06-12] MEDS: Magnesium Sulfate 2 GM/50 mL 2 GM in Premix Bag 1 BAG IV ONE (22:33)
[2025-06-12] MEDS: Potassium Chloride 20 MEQ Tab.ER PO ONE (22:33)
[2025-06-12] MEDS: D5%-0.9% NaCl w/ KCl 40 meq 1,000 ML IV SCH (23:04)
[2025-06-13] MEDS: Lidocaine 2% Viscous Solution 15 ML UD PO ONE (00:30)
[2025-06-13 01:36] LABS: APPEARANCE,URINE CLEAR; GLUCOSE,URINE NEGATIVE (NEGATIVE); OCCULT BLOOD,URINE TRACE-INTACT (NEGATIVE)
[2025-06-13 01:42] LABS: EPITHELIAL CELLS,URINE OCCASIONAL (NONE-FEW)
[2025-06-13 04:10] LABS: AMPHETAMINES SCREEN, URINE NEGATIVE (CUTOFF=500); BUPRENORPHINE SCREEN,URINE NEGATIVE (CUTOFF=10); METHADONE SCREEN, URINE NEGATIVE (CUTOFF=200); METHAMPHETAMINES SCREEN, URINE NEGATIVE (CUTOFF=500); OXYCODONE SCREEN,URINE NEGATIVE (CUT0FF=100); PCP SCREEN,URINE NEGATIVE (CUTOFF=25); THC SCREEN,URINE 20 NG/ML PRESUMPTIVE POSITIVE (CUTOFF=50)
[2025-06-13 04:32] VITALS: BP 157/98; PULSE 105
== END 2025-06-13 06:29 ==
LOC: MW.ED 20:55
DX: R56.9 Unspecified convulsions (principal); S01.512A Laceration without foreign body of oral cavity, initial encounter; F10.230 Alcohol dependence with withdrawal, uncomplicated; E83.42 Hypomagnesemia; E87.6 Hypokalemia; I10 Essential (primary) hypertension; K21.9 Gastro-esophageal reflux disease without esophagitis; Z88.0 Allergy status to penicillin; Z91.018 Allergy to other foods; Z79.899 Other long term (current) drug therapy; Y90.9 Presence of alcohol in blood, level not specified
CPT/HCPCS: 36415; 70450; 71045; 72125; 80053; 80305; 80307; 81001; 83690; 83735; 83880; 84484; 85025; 93005; 96365; 96366; 96367; 96375; 99285; A9270; J2405; J3360; J3411; J3475; J3490; J7030; 93010; 99284; J3480